=== PATIENT | female | born 1985 | race Asian ===

== ENCOUNTER 2016-12-29 21:25 | Emergency (ER) | payer OTHER ==
[~2016-12-29] VITALS: Ht 144.8 cm; Wt 51.7 kg
[2016-12-29 21:38] VITALS: BP 110/72
--- NOTE | 2016-12-29 22:36 | NUR ---
PT TAKEN TO BED 5
--- NOTE | 2016-12-29 22:38 | NUR ---
PT IS 31/F BIB SELF TO ED WITH C/O RASHES ALL OVER HER BODY STARTED TODAY, IN THE AFTERNOON, SHE TOOK BENADRYL AT 1800 HOURS. NO SOB NOTED AT THIS TIME. PT STATES NO MED HX. DENIES N/V/D; SKIN IS WARM/DRY; AAOX4 WITH EVEN AND STEADY GAIT; LUNGS CLEAR BL; HR EVEN AND REGULAR; PT DENIES ANY FEVER, CP, SOB, OR COUGH AT THIS TIME; PATIENT STATES PAIN OF 0/10 AT THIS TIME; VSS; PATIENT POSITIONED FOR COMFORT; HOB ELEVATED; BEDRAILS UP X2; BED DOWN. ER MD MADE AWARE OF PT STATUS.
[2016-12-29] MEDS ORDERED: diphenhydrAMINE 50 MG/ML VIAL IM ONE (22:45)
[2016-12-29] MEDS ORDERED: methylPREDNISolone SS 125 MG in WATER STERILE 2 ML IM ONE (22:45)
--- NOTE | 2016-12-30 00:08 | NUR ---
Patient discharged with v/s stable. Written and verbal after care instructions given and explained. Patient alert, oriented and verbalized understanding of instructions. Ambulatory with steady gait. All questions addressed prior to discharge. ID band removed. Patient advised to follow up with PMD. Rx of MEDROL AND LOUISE given. Patient educated on indication of medication including possible reaction and side effects. Opportunity to ask questions provided and answered.
[2016-12-30 00:10] VITALS: BP 114/68
== END 2016-12-30 00:08 | disposition home or self-care (01) ==
LOC: MED 21:25
DX: L50.9 Urticaria, unspecified (principal)
CPT/HCPCS: 96372; 99284; J1200; J2930

== ENCOUNTER 2021-07-29 18:44 | Emergency (ER) | payer OTHER ==
[~2021-07-29] VITALS: Ht 142.2 cm; Wt 64.4 kg
[2021-07-29 18:47] VITALS: BP 158/94
--- NOTE | 2021-07-29 18:53 | NUR ---
PT SENT TO LOBBY
--- NOTE | 2021-07-29 18:54 | NUR ---
DR. UGALDE EVALUATING PATIENT IN TRIAGE ROOM
[2021-07-29] MEDS ORDERED: PRED20TA5 PO (18:59)
[2021-07-29] MEDS ORDERED: FAMO-90 PO (18:59)
--- NOTE | 2021-07-29 19:13 | NUR ---
NO NURSING INTERVENTIONS PROVIDED
--- NOTE | 2021-07-29 19:14 | NUR ---
ATTEMPTED TO CALL PATIENT TO D/C NO ANSWER, UNABLE TO LOCATE PATIENT IN LOBBY OR PARKING LOT.
--- NOTE | 2021-07-29 19:16 | NUR ---
PATIENT LEFT WITHOUT DISCHARGE WORK
== END 2021-07-29 19:16 | disposition home or self-care (01) ==
LOC: MED 18:44
DX: T78.40XA Allergy, unspecified, initial encounter (principal); H05.223 Edema of bilateral orbit; Z79.899 Other long term (current) drug therapy; X58.XXXA Exposure to other specified factors, initial encounter
CPT/HCPCS: 99283